=== PATIENT | male | born 1990 | race Caucasian/White ===

== ENCOUNTER 2021-09-05 19:21 | Emergency (ER) | payer OTHER ==
[~2021-09-05 19:21] MED LIST: BENTYL 20MG TAB20 MG PO; MECLIZINE HCL25 MG PO; MOBIC15 MG PO; ZOFRAN4 MG PO
[2021-09-05 20:16] LABS: HEMOGLOBIN 16.1 gm/dl (14.0-17.5); RED BLOOD COUNT 5.42 M/UL (4.20-5.50); WHITE BLOOD COUNT 9.1 K/UL (4.5-11.0)
[2021-09-05 20:44] LABS: BUN/CREATININE RATIO 14 (0-10)
[2021-09-05] MEDS ORDERED: IMODIUM CAP 2 MG2 MG PO (23:11)
[2021-09-05] MEDS ORDERED: PHENERGAN 25 MG25 M1 PO (23:11)
[2021-09-05] MEDS ORDERED: AMOX TR-K CLV1 EAC4 PO (23:11)
== END 2021-09-05 23:17 | disposition home or self-care (01) ==
LOC: ER1 19:21
PROVIDERS: Physician Assistant
DX: K52.9 Noninfective gastroenteritis and colitis, unspecified (principal); R11.2 Nausea with vomiting, unspecified; I10 Essential (primary) hypertension; Z88.2 Allergy status to sulfonamides
CPT/HCPCS: 80053; 81001; 82150; 83605; 83690; 85025; 87086; 93005; 96372; 96374; 99284; J1885; J2550; Q9967